=== PATIENT | female | born 1955 | race Caucasian/White ===

== ENCOUNTER → 2016-11-04 | Outpatient (CLI) | payer OTHER ==
[~2016-11-04] MED LIST: ASPI81TA28 PO; CLC100 PO; CLOP1TAB15 PO; LISI10TA PO; METO25TA3 PO; MRLP17X PO; NTRGSL/4 SL; NXM/40 PO; ZNTT/150 PO
--- NOTE | 2016-11-04 16:44 | MAMMOGRAPHY REPORT ---
BILATERAL DIGITAL SCREENING MAMMOGRAM TOMOSYNTHESIS WITH CAD: 11/04/2016 CLINICAL HISTORY: Routine screening. Patient has no complaints. TECHNIQUE: Breast tomosynthesis in addition to standard 2D mammography was performed. Current study was also evaluated with a Computer Aided Detection (CAD) system. COMPARISON: Comparison is made to exams dated: 07/07/2015 mammogram, 05/29/2013 mammogram, 07/01/2014 mammogram, 01/06/2012 mammogram, 12/31/2010 mammogram, and 12/28/2009 mammogram - [facility] enter. BREAST COMPOSITION: There are scattered areas of fibroglandular density in both breasts. FINDINGS: No suspicious masses, calcifications, or areas of architectural distortion are noted in e ither breast. There has been no significant interval change compared to prior exams. Scattered bilat eral benign-appearing calcifications are not significantly changed. IMPRESSION: ACR BI-RADS CATEGORY 2: BENIGN There is no mammographic evidence of malignancy. A 1 year screening mammogram is recommended. The p atient will receive written notification of the results. Approximately 10% of breast cancers are not detected with mammography. A negative mammographic repor t should not delay biopsy if a clinically suggestive mass is present. Chen Ramos M.D. /:11/04/2016 15:12:29 Land Survey Technician: Annita GIVENS)(M), [facility] letter sent: Normal 1/2 BI-RADS Code: ACR BI-RADS Category 2: Benign
== END | disposition home or self-care (01) ==
LOC: C.MAMM 07:34
PROVIDERS: ATTEND Obstetrics & Gynecology
DX: Z12.31 Encounter for screening mammogram for malignant neoplasm of breast (principal)

== ENCOUNTER → 2017-03-09 | Outpatient (CLI) | payer OTHER ==
[2017-03-09 12:22] LABS: BASO % 0.5 %; BASO ABS # 0.03 K/uL (0-0.2); COMPLETE YES; EOS % 1.4 %; HEMATOCRIT 41.7 % (37-47); IG% 0.2 %; LYMPH % 27.7 %; LYMPH ABS # 1.73 K/uL (1.2-3.4); MEAN CELL VOLUME 84.8 fL (80-100); MEAN CORPUSCULAR HEMOGLOBIN 27.2 pg (25-34); MEAN CORPUSCULAR HGB CONC 32.1 g/dl (32-36); MEAN PLATELET VOLUME 10.6 fL (7.4-10.4); MONO % 6.4 %; NEUT % 63.8 %; PLATELET COUNT 169 K/uL (130-400); RED BLOOD COUNT 4.92 M/uL (4.2-5.4); WHITE BLOOD COUNT 6.24 K/uL (4.8-10.8)
[2017-03-09 12:40] LABS: URINE APPEARANCE CLEAR (CLEAR); URINE BILIRUBIN NEG (NEG); URINE COLOR YELLOW; URINE NITRITE NEG (NEG); URINE PH 6.5 (4.5-7.5); URINE SPECIFIC GRAVITY 1.014 (1.000-1.030); UROBILINOGEN NEG (NEG); ZZUR CULT IF INDIC CLEAN CATCH NO
[2017-03-09 12:49] LABS: MANUAL MICROSCOPIC REQUIRED? NO; REVIEW REQ? NO
[2017-03-09 12:55] LABS: ALT/SGPT 27 U/L (12-78); AST/SGOT 11 U/L (15-37); BLOOD UREA NITROGEN 17 mg/dl (7-18); BUN/CREATININE RATIO 17.9 (10-20); CALCIUM 9.1 mg/dl (8.5-10.1); CARBON DIOXIDE 27 mmol/L (21-32); CHLORIDE 108 mmol/L (98-107); CHOLESTEROL 128 mg/dl (0-200); CREATININE 0.94 mg/dl (0.60-1.20); GLUCOSE 95 mg/dl (70-99); SODIUM 141 mmol/L (136-145); TRIGLYCERIDES 124 mg/dl (0-150); VERY LOW DENSITY LIPOPROT CALC 25 mg/dl
[2017-03-09 13:06] LABS: ALKALINE PHOSPHATASE 99 U/L (45-117); CHOLESTEROL/HDL RATIO 2.9; HDL CHOLESTEROL 44 mg/dl; LDL CHOLESTEROL CALCULATED 59 mg/dl
== END | disposition home or self-care (01) ==
LOC: C.LABBFT 10:14
PROVIDERS: ATTEND Internal Medicine
DX: R53.83 Other fatigue (principal); E78.5 Hyperlipidemia, unspecified; D64.9 Anemia, unspecified

== ENCOUNTER → 2017-06-16 | Outpatient (CLI) | payer OTHER ==
[~2017-06-16] VITALS: Ht 160 cm; Wt 88.0 kg
[2017-06-16 13:35] VITALS: BP 122/77; PULSE 69; Ht 160 cm; Wt 88.0 kg
== END | disposition home or self-care (01) ==
LOC: C.NEUR 13:09
PROVIDERS: ATTEND Internal Medicine Pulmonary Disease
DX: R53.83 Other fatigue (principal); G47.8 Other sleep disorders; R06.83 Snoring; I25.10 Atherosclerotic heart disease of native coronary artery without angina pectoris

== ENCOUNTER → 2017-07-19 | Outpatient (CLI) | payer OTHER ==
--- NOTE | 2017-07-21 12:51 | POLYSOMNOGRAPH REPORT ---
CLINICAL DATA: A 62-year-old female with a BMI of 34.[address] Wolff and myself with a history of unrefreshing sleep, snoring, fragmented sleep architecture, and fatigue. On the evening of July 19, 2017, a home sleep apnea test was performed using a [employer] type 3 monitor. RECORDING RESULTS: Total recording time was 10 hours. The patient's monitoring time and estimated sleep time was 7.2 hours. RESPIRATORY DATA: Mild sleep apnea was documented. The BORIS was 9.2. There were 11 obstructive apneic episodes and 55 hypopneic episodes recorded. The longest respiratory event was 23 seconds. OXIMETRY DATA: Mild hypoxemia was seen. Oxygen rosario was 84%. Mean saturation was 93%. Time below 89% was 3 minutes. HEART RATE DATA: Heart rates ranged from 55-64 beats per minute. SNORING DATA: Snoring was recorded throughout the night. TOOL CRIB LEAD'S COMMENTS: The patient stated that she did not feel like she slept at all. However, there was snoring seen rhythmically during the test and it appeared that she was sleeping. IMPRESSION: Mild sleep apnea/hypopnea with an BORIS of 9.2 with mild nocturnal hypoxemia. RECOMMENDATIONS: The patient may benefit from a repeat sleep study with CPAP, use of auto CPAP or use of an oral appliance. Clinical correlation is needed. ERNESTINA
== END | disposition home or self-care (01) ==
LOC: C.NEUR 10:22
PROVIDERS: ATTEND Internal Medicine Pulmonary Disease
DX: I25.10 Atherosclerotic heart disease of native coronary artery without angina pectoris (principal); R53.83 Other fatigue; R06.83 Snoring; G47.8 Other sleep disorders

== ENCOUNTER → 2017-10-02 | Outpatient (CLI) | payer OTHER ==
[2017-10-02 12:32] LABS: BASO % 0.4 %; BASO ABS # 0.03 K/uL (0-0.2); EOS % 1.6 %; EOS ABS # 0.12 K/uL (0-0.5); HEMATOCRIT 39.7 % (37-47); HEMOGLOBIN 13.1 g/dL (12.0-16.0); IG# 0.02 K/uL (0.00-0.02); LYMPH % 26.1 %; LYMPH ABS # 1.95 K/uL (1.2-3.4); MEAN CORPUSCULAR HEMOGLOBIN 28.1 pg (25-34); MEAN PLATELET VOLUME 10.6 fL (7.4-10.4); MONO % 7.6 %; MONO ABS # 0.57 K/uL (0.11-0.59); NEUT ABS # 4.79 K/uL (1.4-6.5); PLATELET COUNT 170 K/uL (130-400); WHITE BLOOD COUNT 7.48 K/uL (4.8-10.8)
[2017-10-02 12:35] LABS: ALBUMIN 3.6 gm/dl (3.4-5.0); ALT/SGPT 46 U/L (12-78); AST/SGOT 24 U/L (15-37); BLOOD UREA NITROGEN 17 mg/dl (7-18); CALCIUM 8.5 mg/dl (8.5-10.1); CARBON DIOXIDE 28 mmol/L (21-32); GLUCOSE 95 mg/dl (70-99); POTASSIUM 4.2 mmol/L (3.5-5.1); SODIUM 140 mmol/L (136-145)
[2017-10-02 12:46] LABS: ALKALINE PHOSPHATASE 111 U/L (45-117); TOTAL PROTEIN 7.3 gm/dl (6.4-8.2)
== END | disposition home or self-care (01) ==
LOC: C.LABBFT 10:07
PROVIDERS: ATTEND Internal Medicine
DX: R00.2 Palpitations (principal)

== ENCOUNTER → 2017-10-18 | Outpatient (CLI) | payer OTHER ==
--- NOTE | 2017-10-18 18:08 | Myocardial Perfusion Study ---
Myocardial Perfusion Study Rpt Myocardial Perfusion Study Rpt Date of Service 10/18/2017 Myocardial Perfusion Study Rpt Procedure: 1. Myocardial perfusion study performed in multiple views/images 2. Exercise treadmill stress ECG Indications: 1. Exertional angina 2. CAD Consent: Informed written consent was obtained prior to the procedure. Ordering physician: Dr. Del Rio Procedural details: For the stress portion of the study, 32.7 mCi of technetium 99m Cardiolite, injected at 11:35 a.m. on 10/18/2017. 30 minutes following the injection, imaging of the heart was performed in multiple projections. For the rest portion of the study, 11.2 mCi technetium 99m Cardiolite was injected intravenously at 9:30 a.m. on 10/18/2017. 1 hour following the injection, imaging of the heart was performed in the same projections. Exercise treadmill stress ECG: Patient exercised via standard Jeffery protocol for a total of 6 minutes and 15 seconds, attaining 7.7 METS. Exercise was terminated due to dyspnea. Resting ECG demonstrated: Sinus rhythm at 76 bpm Maximum heart rate: 144 bpm Resting blood pressure: 160/88 mmHg Maximum blood pressure: 168/80 mmHg Maximal, age-predicted heart rate: 91 % Significant ST changes: None Arrhythmia: None Symptoms: No chest pain. Exercise terminated due to dyspnea. Findings: Rotating raw imaging demonstrated no significant lung uptake. There is no significant motion artifact. Heart size appeared normal. Myocardial perfusion demonstrated no significant reversible or fixed defect to suggest ischemia or infarct. Ejection fraction: 85 % Wall motion: Normal No significant transient ischemic dilation. Impression: 1. Negative myocardial perfusion study for ischemia at 91% MPHR. 2. Negative exercise ECG for ischemia at 91% MPHR. 3. Hyperdynamic left ventricular systolic function. EF 85%. 4. Normal wall motion. 5. Blunted blood pressure response to exercise. 6. No arrhythmia. 7. Fair exercise tolerance.
== END | disposition home or self-care (01) ==
LOC: C.NUCL 09:10
PROVIDERS: ATTEND Internal Medicine Interventional Cardiology
DX: I25.118 Atherosclerotic heart disease of native coronary artery with other forms of angina pectoris (principal)

== ENCOUNTER → 2018-02-13 | Outpatient (CLI) | payer OTHER ==
[~2018-02-13] MED LIST changes: +RANI150T85 PO; -ZNTT/150 PO
--- NOTE | 2018-02-13 13:15 | MAMMOGRAPHY REPORT ---
BILATERAL DIGITAL SCREENING MAMMOGRAM TOMOSYNTHESIS WITH CAD: 02/13/2018 CLINICAL HISTORY: Routine screening. Patient has no complaints. TECHNIQUE: Breast tomosynthesis in addition to standard 2D mammography was performed. Current study was also evaluated with a Computer Aided Detection (CAD) system. COMPARISON: Comparison is made to exams dated: 11/04/2016 mammogram, 07/07/2015 mammogram, 07/01/2014 mammogram, 05/29/2013 mammogram, 01/06/2012 mammogram, and 12/31/2010 mammogram - [facility] nter. BREAST COMPOSITION: There are scattered areas of fibroglandular density in both breasts. FINDINGS: The parenchymal pattern is similar to prior mammograms. There are numerous benign rim chasidy cifications. No developing mass, architectural distortion or cluster of suspicious microcalcificatio ns is seen. IMPRESSION: ACR BI-RADS CATEGORY 2: BENIGN There is no mammographic evidence of malignancy. A 1 year screening mammogram is recommended. The pa tient will receive written notification of the results. Approximately 10% of breast cancers are not detected with mammography. A negative mammographic report should not delay biopsy if a clinically suggestive mass is present. Karin Toscano M.D. ay/:02/13/2018 07:52:08 Miner Operator: Micki GIVENS)(Juan Jose), [facility] letter sent: Normal 1/2 BI-RADS Code: ACR BI-RADS Category 2: Benign
== END | disposition home or self-care (01) ==
LOC: C.MAMM 07:17
PROVIDERS: ATTEND Obstetrics & Gynecology
DX: Z12.31 Encounter for screening mammogram for malignant neoplasm of breast (principal)

== ENCOUNTER → 2018-04-17 | Outpatient (CLI) | payer OTHER | END | disposition home or self-care (01) | LOC: C.PAPS 13:27 | PROVIDERS: ATTEND Nurse Practitioner | DX: Z12.4 Encounter for screening for malignant neoplasm of cervix (principal); Z78.0 Asymptomatic menopausal state ==

== ENCOUNTER 2018-11-09 09:53 | Observation (INO) ==
[2018-11-09] MEDS ORDERED: NiCARDipine HCL INJ 2.5 MG/ML 10 ML AMP ONE (11:29)
[2018-11-09] MEDS ORDERED: HEPARIN (PORCINE) 1000 UNIT/ML 10 ML (CATH LAB USE ONLY) ONE (11:29)
[2018-11-09] MEDS ORDERED: NITROGLYCERIN/D5W 100MCG/ML 20ML SYR ONE (11:29)
[2018-11-09] MEDS ORDERED: MIDAZOLAM HCL 1 MG/ML 2ML VIAL ONE (11:29)
[2018-11-09] MEDS ORDERED: fentaNYL citrate 100 MCG/2 ML VIAL ONE (11:30)
--- NOTE | 2018-11-09 11:38 | Pre Anesthesia Assessment ---
Date of Service November 09, 2018 Pre Sedation Assessment Vital Signs Temp Pulse Resp BP Pulse Ox 11/09/18 10:20 37.1 C 68 16 138/53 L 98 Cardiovascular RRR, no murmur, no edema Respiratory + respiratory effort normal Pre-Sedation Airway Assessment Smoking Status: Never smoker Hx Sleep Apnea: Yes Short, Thick Neck: No Thyromental Distance: > or= 3.5 Finger Breadths Oral Cavity: + WNL Mallampati Class: III ASA: ASA3 NPO Status Date of Last Intake of Fluids: 11/08/18 Time of Last Intake of Fluids: 19:00 Date of Last Intake of Solid Food: 11/08/18 Time of Last Intake of Solid Foods: 19:00 Procedure Planning Contraindications for Sedation: none Current Medications Reviewed: Yes Notes The planned sedation has been discussed with the patient. Informed Consent was obtained. I have identified the patient, determined the appropriateness of sedation and have assessed the patient immediately prior to the procedure. All medicine(s) and interventions are by my order.
--- NOTE | 2018-11-09 11:38 | History & Physical Report ---
Date of Service November 09, 2018 Assessment & Plan (1) Coronary arteriosclerosis in [place] artery: Refractory angina despite maximal medical therapy. Proceed with cardiac catheterization. History of Present Illness Primary Care Provider: Denis Wolff MD Mrs. Bobo is a pleasant 63-year-old female with history of hypertension, hyperlipidemia, GERD and coronary artery disease status post 2 drug-eluting stents to her LAD and 1 MARVA to her 1st diagonal 06/08/2016 here with progressive , refractory angina despite maximal medical therapy. Prior to catheterization patient had been endorsing exertional chest pain for more than 6 months in the setting of a negative stress echocardiogram in October of 2015. Cardiac catheterization in May 2016 showed a 50% proximal LAD lesion extending into the mid segment with a more focal 80% mid LAD lesion after take-off of 1st diagonal. 1st diagonal also had a 70-80% proximal stenosis. Her distal AV groove circumflex prior to the takeoff of a left PDA had a focal 70-80% stenosis. FFR positive and PCI was undertaken with placement of 2 overlapping drug-eluting stents to her LAD (2.75 x 12 Xience, 2.5 x 38 Xience) and 1 stent to the ostium of her 1st diagonal (2.25 x 15 Xience ). Allergies Allergy/AdvReac Type Severity Reaction Status Date / Time pollen extracts Allergy Intermediate RUNNY Verified 07/16/16 10:14 NOSE, ITCHY EYES, SNEEZING cetirizine Allergy Unknown RASH Verified 07/16/16 10:11 Home Medications Home Medications Medication Instructions Recorded Confirmed Type Esomeprazole Magnesium (Nexium) 40 mg PO DAILY #0 cap 09/03/14 History ASPIRIN (ASPIRIN EC) 81 mg PO DAILY #0 06/08/16 History Clopidogrel (Plavix) 75 mg PO DAILY #0 tab 07/09/16 History Lisinopril (Prinivil) 10 mg PO DAILY #0 tab 07/09/16 History Metoprolol Succ (Toprol Xl) 25 mg PO BID #30 tab 07/09/16 History (Toprol-Xl) Docusate Sodium 200 mg PO DAILY #60 cap 07/17/16 Rx Polyethylene (Miralax) 17 g PO DAILY PRN #1 btl 07/17/16 Rx Nitroglycerin (Nitrostat) 1 tab SUBLINGUAL UD #100 tab 08/02/16 History Ranitidine (Zantac) 1 tab PO BID 30 Days #60 tab 08/02/16 History Past Med/Surg History Social History Current Living Situation: Spouse Other Information That Helps Us Care for You: No Feels Safe at Home: Yes Safety Concerns: Feels Safe At This Time Smoking Status: Never smoker Hx Substance Use: No Beliefs That Will Affect Care: None Preferred Language: Salvadorean Communication Ability: Effective Director Of Communications Required: No Physical Exam 2 Vital Signs (Past 24 Hours): Last Vital Signs Temp 37.1 C 11/09/18 10:20 Pulse 68 11/09/18 10:20 Resp 16 11/09/18 10:20 BP 138/53 L 11/09/18 10:20 Pulse Ox 98 11/09/18 10:20 Constitutional: WD/WN, vitals as above Eyes: PERRL, conjunctivae normal, anicteric sclerae Cardiovascular: RRR, no murmur, no edema Gastrointestinal (Abdomen): normal bowel sounds, soft, nontender, no hepatosplenomegaly Skin: no rashes, warm and dry Psychiatric: A+Ox3, euthymic affect ASA Classification ASA ASA3
[2018-11-09] MEDS ORDERED: CLOPIDOGREL BISULFATE 300 MG TAB ONE (12:41)
--- NOTE | 2018-11-09 12:44 | Post Anesthesia Assessment ---
Date of Service November 09, 2018 Post Sedation Assessment Vital Signs Temp Pulse Resp BP Pulse Ox 11/09/18 10:20 37.1 C 68 16 138/53 L 98 Recovery Score Activity: Moves 4 extremities Respiration: Deep Breath/Cough Circulation: +/-20% PreAnes Value Consciousness: Fully Awake Oxygen Saturation: O2 needed for >90% Discharge Sedation Level of Care: Fast Track Phase II Post Sedation Plan On clinical assessment, the patient appears to have tolerated the sedation without complications. Patient is recovering as anticipated. Patient will continue to be monitored by nursing and may be discharged when sedation discharge criteria are met per below protocol. Upon Completions of procedure and additional 15 minutes continue every 5 minute vital signs and the P.A.R. score; then discharge to a Phase I or Fast Track to Phase II per the following guidelines: * Discharge Patient to appropriate Phase II area if PAR is 8 or greater or return to pre- procedure baseline. The post - procedure orders will be as directed. * If PAR score is less than 8 or not return to pre-procedure baseline then patient will follow Phase I monitoring till PAR is reached for Phase II. The Phase I may be done in procedure room or may call to secure a Phase I area. * �If naloxone or flumazenil are used for reversal, hold in Phase I for continued monitoring from when last reversal dose was given for a minimum of 60 minutes or longer pending the nurse and/or physician discretion of patient condition before discharge to Phase II.� Please call the Sedation Physician to re-evaluate and complete post-note for discharge to Phase II area. Do NOT discharge from procedure sedation or Phase 1 until post- sedation evaluation note is complete by procedure /sedation MD Sedation Discharge Instructions to be given to the patient at discharge to home.
[2018-11-09] MEDS ORDERED: ONDANSETRON INJ 2 MG/ML 2 ML VIAL IV PRN (12:54)
--- NOTE | 2018-11-09 12:54 | Cardiac Catheterization ---
Cardiac Cath Procedure Full Procedure Date November 09, 2018 Pre-Procedure Diagnosis Pre-Procedure Diagnosis: Angina AUC Score AUC Score: 7 Post-Procedure Diagnosis Post-Procedure Diagnosis: Severe CAD, Successful PCI and Normal Intracardiac Pressures Procedure(s) Performed Procedure(s) Performed: Coronary Angiography, Left Heart Cath and Drug Eluting Stent Corporate Consultant Denis Del Rio MD Nut Sifter(s) Dakota Daniel Estimated Blood Loss Estimated Blood Loss: 15 Medication(s) Medication(s): Clopidogrel, Fentanyl, Heparin, Lidocaine 1%, Nicardipine, Nitroglycerin and Versed Summary of Findings Indication: Refractory angina despite maximal medical therapy Access: 6 [place] right radial artery Catheters: [place], JL 3.5; EBU 3.5 guide Findings: LM -short, no significant disease LAD -moderate caliber vessel, widely patent proximal to mid LAD stents, no significant mid to distal disease. Patent first diagonal stent. Circumflex -large caliber vessel, dominant, 80-90% proximal left PDA. No significant disease in 2 OM's, PLB RCA -small, nondominant LVEDP -3 -- PCI -- Antithrombotic therapy: Heparin, clopidogrel Procedure: Left main cannulated with EBU 3.5 guide Electric Meter Repairer Apprentice 50 wire passed across lesion into distal left PDA Proximal PDA lesion predilated with 2.0 compliant balloon Dilated lesion stented with 2.25 x 18 mm Emeterio Stent post-dilated with 2.25 noncompliant balloon IC vasodilators administered for spasm Post procedure GILBERT 3 flow, stent well expanded with minimal residual stenosis and no apparent cardiac complications. Arterial Closure: TR Summary: 1. Severe single vessel coronary artery disease -80-90% proximal left PDA �Widely patent proximal to mid LAD and diagonal stents 2. Normal intracardiac filling pressure 3. Successful PCI of proximal left PDA with single drug-eluting stent (2.25 x 18 mm [place]). Recommendations: To PCU for continued monitoring Reloaded with clopidogrel 300 mg in laboratory aide Continue dual-antiplatelet therapy for at least 6 months, likely indefinitely with prior complex bifurcation stent Continue statin, and ASCVD risk factor modification Consult cardiac Rehab Hemodynamics Rest Ao:: 144/76/25 Final Ao: 126/61/88 LV: 145/3 Recommendations Recommendations: PCI without planned CABG Specimens Specimens: None Radiation Exposure (mGy) 2613 Contrast (mls) 120 Fluids (cc crystalloids) Fluids (cc crystalloids): 95 Drains Drains: None Anesthesia Moderate Procedural Complication(s) None Disposition PCU ACC Data: Ocean Forwarder Cardiac Status Clinical evaluation leading to the procedure CAD Presenation: Stable angina Anginal Classification: CCS III Heart Failure: No Cardiogenic Shock within 24 Hours: No Cardiac Arrest within 24 Hours: No Imaging Studies Past 6 Months: No Stress Studies Past 6 Months: No Diagnostic Physicians Name: Denis Del Rio MD Status: Elective Closure Device Percutaneous Entry Location: Radial Closure Device: Radial Band Recommendations: PCI without planned CABG PCI Indication: Angina despite med therapy Lesion Segment Name: Proximal left PDA Culprit Artery: No Stenosis Prior to Rx (%): 80-90 Chronic Total Occlusion: No IVUS: No FFR: No Pre-Procedure GILBERT Flow: 3 Previously Treated Lesion: No Lesion Complexity: Non-High/Non-C Lesion Length (mm): 15 Thrombus Present: No Bifurcation Lesion: No Guidewire Across Lesion: Stenosis Post-Procedure (%): 0 Post-Procedure GILBERT Flow : 3 Devices(s) Deployed: Yes Yes Intraprocedure Events Significant Disection: No Perforation: No
[2018-11-09] MEDS ORDERED: NITROGLYCERIN SL SCH (13:00)
[2018-11-09] MEDS ORDERED: SODIUM CHLORIDE 0.9% 1000ML 1,000 ML IV SCH (13:00)
[2018-11-09] MEDS ORDERED: NITROGLYCERIN SL 0.4 MG/TAB TAB SL PRN (13:39)
[2018-11-09] MEDS: METOPROLOL SUCC 25MG EXT REL TAB PO SCH (21:30)
[2018-11-10] MEDS: ACETAMINOPHEN 325 MG TAB PO PRN ×2 (01:13→06:21)
[2018-11-10 08:17] LABS: Basophils # (auto) 0.03 K/uL (0-0.2); Basophils % (auto) 0.4 %; Eosinophils # (auto) 0.08 K/uL (0-0.5); Eosinophils % (auto) 1.2 %; Hematocrit (blood only) 42.4 % (37-47); Immature Granulocytes # (auto) 0.03 K/uL (0.00-0.02); Immature Granulocytes % (auto) 0.4 %; Lymphocytes # (auto) 1.58 K/uL (1.2-3.4); Lymphocytes % (auto) 23.4 %; Mean Corpuscular Volume 84.1 fL (80-100); Monocytes # (auto) 0.47 K/uL (0.11-0.59); Neutrophils # (auto) 4.57 K/uL (1.4-6.5); Neutrophils % (auto) 67.6 %; Platelet Count 174 K/uL (130-400); RDW Coefficient of Variation 13.8 % (11.5-14.5); RDW Standard Deviation 42.3 fL (36.4-46.3); Red Blood Count 5.04 M/uL (4.2-5.4); White Blood Count 6.76 K/uL (4.8-10.8)
[2018-11-10] MEDS: LISINOPRIL 10 MG TAB PO SCH ×2 (08:37→08:41)
[2018-11-10] MEDS: METOPROLOL SUCC 25MG EXT REL TAB PO SCH (08:37)
[2018-11-10 08:42] LABS: BUN Creatinine Ratio 15.6 (10-20); Calcium 8.3 mg/dl (8.5-10.1); Creatinine Clr Calc Pharmacy 63.3 ml/min; Est GFR (African American) 74.8; Est GFR (Non-African American) 64.6; Potassium 3.9 mmol/L (3.5-5.1)
[2018-11-10] MEDS ORDERED: CLOPIDOGREL BISULFATE 75 MG TAB PO SCH (09:00)
[2018-11-10] MEDS ORDERED: ASPIRIN 81 MG ECTAB PO SCH (09:00)
[2018-11-10] MEDS ORDERED: DOCUSATE SODIUM 100 MG CAP PO SCH (09:00)
[2018-11-10] MEDS ORDERED: PANTOprazole 40 MG TAB PO SCH (09:00)
--- NOTE | 2018-11-11 16:31 | Discharge Summary ---
Date of Service November 10, 2018 Admission HPI Per Admitting Provider Mrs. Bobo is a pleasant 63-year-old female with history of hypertension, hyperlipidemia, GERD and coronary artery disease status post 2 drug-eluting stents to her LAD and 1 MARVA to her 1st diagonal 06/08/2016 here with progressive , refractory angina despite maximal medical therapy. Prior to catheterization patient had been endorsing exertional chest pain for more than 6 months in the setting of a negative stress echocardiogram in October of 2015. Cardiac catheterization in May 2016 showed a 50% proximal LAD lesion extending into the mid segment with a more focal 80% mid LAD lesion after take-off of 1st diagonal. 1st diagonal also had a 70-80% proximal stenosis. Her distal AV groove circumflex prior to the takeoff of a left PDA had a focal 70-80% stenosis. FFR positive and PCI was undertaken with placement of 2 overlapping drug-eluting stents to her LAD (2.75 x 12 Xience, 2.5 x 38 Xience) and 1 stent to the ostium of her 1st diagonal (2.25 x 15 Xience ). Admission Exam (Per Admitting) Constitutional WD/WN, vitals as above Eyes PERRL, conjunctivae normal, anicteric sclerae ENMT Mallampati Class: III Respiratory normal respiratory effort Cardiovascular RRR, no murmur, no edema Gastrointestinal (Abdomen) normal bowel sounds, soft, nontender, no hepatosplenomegaly Skin no rashes, warm and dry Psychiatric A+Ox3, euthymic affect Specialty Data Cardiology 1. Severe single vessel coronary artery disease -80-90% proximal left PDA �Widely patent proximal to mid LAD and diagonal stents 2. Normal intracardiac filling pressure 3. Successful PCI of proximal left PDA with single drug-eluting stent (2.25 x 18 mm [place]). Discharge Data Procedures Performed Operation Date: 11/09/18 11:00 Actual Procedures p Cath, Left with Cors and Vent - Jaime Del Rio MD s Cineradiography w/Routine Exam - Jaime Del Rio MD s Drug Eluting Stent SGl Vessel - Jaime Del Rio MD Hospital Course (1) Coronary arteriosclerosis in [place] artery: Patient underwent cardiac catheterization via right radial artery. LAD/ Diagonal stents were widely patent. Again noted to have severe distal circumflex disease into L-PDA which had slightly progressed from 2015. Decision to proceed with PCI in the setting of refractory symptoms despite maximal medical management. A single MARVA placed to circumflex without complication. Patient admitted for overnight observation. No events on telemetry. No access site complications. Post procedure labs stable on day of discharge. Patient was feeling well on hospital day 2 and discharged home with plan for follow-up with cardiology in 2 weeks. Continue prior DAPT with aspirin and clopidogrel. Discharge Instructions Home Medications Esomeprazole Magnesium (Nexium) 40 mg PO DAILY #0 cap 09/03/14 [History] ASPIRIN (ASPIRIN EC) 81 mg PO DAILY #0 06/08/16 [History] Clopidogrel (Plavix) 75 mg PO DAILY #0 tab 07/09/16 [History] Lisinopril (Prinivil) 10 mg PO DAILY #0 tab 07/09/16 [History] Metoprolol Succ (Toprol Xl) (Toprol-Xl) 25 mg PO BID #30 tab 07/09/16 [History] Docusate Sodium 200 mg PO DAILY #60 cap 07/17/16 [Rx] Polyethylene (Miralax) 17 g PO DAILY PRN #1 btl 07/17/16 [Rx] Nitroglycerin (Nitrostat) 1 tab SUBLINGUAL UD #100 tab 08/02/16 [History] Ranitidine (Zantac) 1 tab PO BID 30 Days #60 tab 08/02/16 [History]
== END 2018-11-10 10:50 | disposition home or self-care (01) ==
LOC: 2S 09:53 → CC 09:53